=== PATIENT | female | born 1940 | race Caucasian/White ===

== ENCOUNTER 2018-08-28 07:47 | Inpatient (IN) | payer BC ==
[~2018-08-28] VITALS: Ht 154.9 cm; Wt 66.7 kg
[2018-08-28] MEDS ORDERED: METHYLPREDNISOLONE SOD SUCC 125 MG/2 ML VIAL IV STA (08:02)
[2018-08-28] MEDS ORDERED: MAGNESIUM 2 G PREMIX 50 ML IV ONE (08:15)
[2018-08-28 08:32] LABS: HEMATOCRIT. 32.3 % (36.0-48.0); HEMOGLOBIN. 9.9 g/dL (12.0-16.0); MEAN CORPUSCULAR HEMOGLOBIN 26.6 pg (28.0-32.0); MEAN CORPUSCULAR VOLUME 86.3 fL (81.0-99.0); MEAN PLATELET VOLUME 7.6 fl (7.4-10.4); PLATELET 476 x1000/uL (130-400); RED BLOOD CELL COUNT 3.74 mill/uL (4.2-5.4); RED CELL DISTRIBUTION WIDTH 20.3 % (11.6-14.6)
[2018-08-28 08:35] LABS: CHLORIDE 102 mEq/L (98-107)
[2018-08-28 09:21] LABS: PLATELET ESTIMATE INCREASED
[2018-08-28] MEDS ORDERED: HYDROCODONE/ACETAMINOPHEN 5/325MG TABLET PO PRN (16:30)
[2018-08-28] MEDS ORDERED: CLONIDINE 0.1MG TABLET PO PRN (16:30)
[2018-08-28] MEDS ORDERED: MAGNESIUM/ALUMINUM HYDROXIDE/SIMETHICONE 30ML UDC PO PRN (16:30)
[2018-08-28] MEDS ORDERED: ONDANSETRON HCL 4MG/2ML INJ IV PRN (16:30)
[2018-08-28] MEDS ORDERED: DOCUSATE SODIUM 100MG CAPSULE PO PRN (16:30)
[2018-08-28] MEDS ORDERED: ACETAMINOPHEN 650MG/20.3ML UDC GT PRN (16:30)
[2018-08-28] MEDS ORDERED: ACETAMINOPHEN 650MG SUPP PR PRN (16:30)
[2018-08-28] MEDS ORDERED: GUAIFENESIN 200MG/10ML SUGAR FREE UDC PO PRN (16:30)
[2018-08-28] MEDS ORDERED: ACETAMINOPHEN 325MG TABLET PO PRN (16:30)
[2018-08-28] MEDS ORDERED: DIPHENHYDRAMINE 50MG/ML VIAL IV PRN (16:30)
[2018-08-28] MEDS ORDERED: APIX5TAB PO (18:33)
[2018-08-28] MEDS ORDERED: OMEP20TA2 PO (18:33)
[2018-08-28] MEDS ORDERED: ALBU18HF2 IH (18:33)
[2018-08-28] MEDS ORDERED: FERR-71 PO (18:33)
[2018-08-28] MEDS ORDERED: TIOT18CA3 IH (18:33)
[2018-08-28] MEDS ORDERED: METO25TA6 PO (18:33)
[2018-08-28] MEDS ORDERED: NA PHOS,M-B/NA PHOS,DI-BA ENEMA 118ML PR PRN (18:43)
[2018-08-28 20:00] VITALS: BP 125/59
[2018-08-28 21:35] VITALS: BP 125/59
[2018-08-28] MEDS: METHYLPREDNISOLONE SOD SUCC 125 MG/2 ML VIAL IV SCH (22:26)
[2018-08-28] MEDS: SODIUM CHLORIDE 0.9% INJ 3ML FLUSH IVF SCH (22:26)
[2018-08-29] VITALS: BP 117/54
[2018-08-29] MEDS ORDERED: DEXTROSE 50% WATER 50ML SYRINGE IV PRN
[2018-08-29] MEDS: BUDESONIDE 0.5MG/2ML NEB HHN SCH ×3 (00:25→20:54)
[2018-08-29] MEDS: IPRATROPIUM BROMIDE (0.02%) 0.5MG/2.5ML NEB HHN SCH ×5 (00:25→13:58)
[2018-08-29 04:00] VITALS: BP 120/59
[2018-08-29] MEDS: METHYLPREDNISOLONE SOD SUCC 125 MG/2 ML VIAL IV SCH ×4 (06:38→21:41)
[2018-08-29] MEDS: SODIUM CHLORIDE 0.9% INJ 3ML FLUSH IVF SCH ×3 (06:42→21:42)
[2018-08-29] MEDS: BLOOD SUGAR DIAGNOSTIC STRIP TEST SCH ×4 (06:42→21:39)
[2018-08-29] MEDS: INSULIN LISPRO 100 UNITS/ML SUBCUT SCH ×4 (06:45→21:00)
[2018-08-29] MEDS: OMEPRAZOLE 20MG CAPSULE EXTENDED RELEASE PO SCH (06:45)
[2018-08-29 06:53] LABS: CHLORIDE 101 mEq/L (98-107)
[2018-08-29 07:20] LABS: LDL CHOLESTEROL 166 mg/dL (5-100)
[2018-08-29 07:21] LABS: HDL CHOLESTEROL 56 mg/dL (40-59)
[2018-08-29 07:30] VITALS: BP 139/56
[2018-08-29 07:30] LABS: HEMOGLOBIN. 9.1 g/dL (12.0-16.0); MEAN CORPUSCULAR HEMOGLOBIN 27.7 pg (28.0-32.0); MEAN CORPUSCULAR VOLUME 85.5 fL (81.0-99.0); MEAN PLATELET VOLUME 7.7 fl (7.4-10.4); PLATELET 480 x1000/uL (130-400); RED BLOOD CELL COUNT 3.28 mill/uL (4.2-5.4); RED CELL DISTRIBUTION WIDTH 20.3 % (11.6-14.6)
[2018-08-29] MEDS: APIXABAN 5 MG TABLET PO SCH ×2 (08:20→16:50)
[2018-08-29] MEDS: METOPROLOL TARTRATE 25MG TABLET PO SCH ×2 (08:21→21:43)
[2018-08-29] MEDS ORDERED: MEDICATION NOT ON FORMULARY EA (Metoprolol Tartrate 25 MG) PO SCH (09:00)
[2018-08-29] MEDS ORDERED: MEDICATION NOT ON FORMULARY EA (Omeprazole 20 MG) PO SCH (09:00)
[2018-08-29] MEDS ORDERED: POTASSIUM CHLORIDE 20MEQ TABLET SR PO PRN (09:00)
[2018-08-29] MEDS ORDERED: MEDICATION NOT ON FORMULARY EA (Apixaban (Eliquis) 5 MG) PO SCH (09:00)
[2018-08-29 12:00] VITALS: BP 127/68
[2018-08-29 16:00] VITALS: BP 115/55
[2018-08-29 20:00] VITALS: BP 108/57
[2018-08-29] MEDS: IPRATROPIUM/ALBUTEROL 0.5-3(2.5)MG/3ML NEB INH PRN (20:58)
[2018-08-30] VITALS (7 sets, daily range): BP systolic 108–151; BP diastolic 44–85
[2018-08-30] MEDS: METHYLPREDNISOLONE SOD SUCC 125 MG/2 ML VIAL IV SCH (04:41)
[2018-08-30] MEDS: OMEPRAZOLE 20MG CAPSULE EXTENDED RELEASE PO SCH (06:21)
[2018-08-30] MEDS: SODIUM CHLORIDE 0.9% INJ 3ML FLUSH IVF SCH ×3 (06:28→22:34)
[2018-08-30] MEDS: BLOOD SUGAR DIAGNOSTIC STRIP TEST SCH ×4 (06:33→20:30)
[2018-08-30] MEDS: INSULIN LISPRO 100 UNITS/ML SUBCUT SCH ×4 (07:08→20:34)
[2018-08-30] MEDS: IPRATROPIUM/ALBUTEROL 0.5-3(2.5)MG/3ML NEB INH PRN (07:21)
[2018-08-30] MEDS: METOPROLOL TARTRATE 25MG TABLET PO SCH ×2 (08:34→20:29)
[2018-08-30] MEDS: APIXABAN 5 MG TABLET PO SCH ×2 (08:35→16:22)
[2018-08-30] MEDS: BUDESONIDE 0.5MG/2ML NEB HHN SCH ×2 (08:51→21:26)
[2018-08-30 09:57] LABS: BG BASE EXCESS 2.3 mmol/L (-2.0-2.0); BG CARBOXYHEMOGLOBIN 0.3 % (0.5-1.5); BG DEOXYHEMOGLOBIN 3.9 % (0.0-5.0); BG FRACTION INSPIRED OXYGEN 21; BG HCO3 ACT 26.8 mmol/L (22.0-26.0); BG METHEMOGLOBIN 0.1 % (0.0-1.5); BG OXYGEN SATURATION 96.1 % (92.0-98.5); BG OXYHEMOGLOBIN 95.7 % (94.0-97.0); BG PCO2 41.1 mmHg (35.0-45.0); BG PH 7.432 (7.350-7.450); BG PO2 81.6 mmHg (75.0-100.0); BG SAMPLE SITE RIGHT BRACHIAL; BG TOTAL HEMOGLOBIN 10.6 g/dL (12.0-18.0); BG VENT MODE ROOM AIR
[2018-08-30] MEDS: GUAIFENESIN 600MG ER TABLET PO SCH ×2 (10:18→20:29)
[2018-08-30] MEDS: IPRATROPIUM BROMIDE (0.02%) 0.5MG/2.5ML NEB HHN SCH ×2 (14:28→21:25)
[2018-08-30 17:28] LABS: PLATELET ESTIMATE INCREASED
[2018-08-30] MEDS: METHYLPREDNISOLONE SOD SUCC 40 MG/ML VIAL IV SCH (17:57)
[2018-08-30 17:58] LABS: HEMATOCRIT. 31.5 % (36.0-48.0); HEMOGLOBIN. 9.8 g/dL (12.0-16.0); MEAN CORPUSCULAR HEMOGLOBIN 27.2 pg (28.0-32.0); MEAN CORPUSCULAR VOLUME 86.9 fL (81.0-99.0); MEAN PLATELET VOLUME 8.1 fl (7.4-10.4); PLATELET 428 x1000/uL (130-400); RED BLOOD CELL COUNT 3.62 mill/uL (4.2-5.4); RED CELL DISTRIBUTION WIDTH 20.6 % (11.6-14.6)
[2018-08-30 18:00] LABS: CHLORIDE 103 mEq/L (98-107)
[2018-08-30 19:04] LABS: PLATELET ESTIMATE INCREASED
[2018-08-31] VITALS: BP 110/52
[2018-08-31] MEDS: IPRATROPIUM BROMIDE (0.02%) 0.5MG/2.5ML NEB HHN SCH ×3 (02:33→15:15)
[2018-08-31 04:00] VITALS: BP 137/53
[2018-08-31] MEDS: BLOOD SUGAR DIAGNOSTIC STRIP TEST SCH ×2 (05:21→13:06)
[2018-08-31] MEDS: SODIUM CHLORIDE 0.9% INJ 3ML FLUSH IVF SCH (05:21)
[2018-08-31] MEDS: METHYLPREDNISOLONE SOD SUCC 40 MG/ML VIAL IV SCH (05:21)
[2018-08-31] MEDS: INSULIN LISPRO 100 UNITS/ML SUBCUT SCH ×2 (05:22→12:40)
[2018-08-31] MEDS: OMEPRAZOLE 20MG CAPSULE EXTENDED RELEASE PO SCH (06:14)
[2018-08-31 07:58] VITALS: BP 143/48
[2018-08-31] MEDS: BUDESONIDE 0.5MG/2ML NEB HHN SCH (09:05)
[2018-08-31] MEDS: GUAIFENESIN 600MG ER TABLET PO SCH (09:43)
[2018-08-31] MEDS: APIXABAN 5 MG TABLET PO SCH (09:44)
[2018-08-31] MEDS: METOPROLOL TARTRATE 25MG TABLET PO SCH (09:45)
[2018-08-31 12:02] VITALS: BP 127/57
[2018-08-31] MEDS ORDERED: P50 MT (12:36)
[2018-08-31] MEDS ORDERED: PULM50 HHN (12:36)
[2018-08-31 17:09] VITALS: BP 135/53
[2018-08-31 17:12] VITALS: BP 135/53
[2018-09-01] MEDS ORDERED: PREDNISONE 20MG TABLET PO SCH (07:40)
== END 2018-08-31 18:20 | disposition home or self-care (01) | DRG 193 ==
LOC: ER 07:56 → 8WST 11:35 → EDBEDREQ 11:38 → ENRESERV 16:08
PROVIDERS: ADMIT Family Medicine; ATTEND Family Medicine
DX: J18.9 Pneumonia, unspecified organism (principal); J96.21 Acute and chronic respiratory failure with hypoxia; J44.1 Chronic obstructive pulmonary disease with (acute) exacerbation; E44.0 Moderate protein-calorie malnutrition; J44.0 Chronic obstructive pulmonary disease with (acute) lower respiratory infection; I48.2 Chronic atrial fibrillation; D64.9 Anemia, unspecified; E78.5 Hyperlipidemia, unspecified; I50.9 Heart failure, unspecified; K44.9 Diaphragmatic hernia without obstruction or gangrene; N20.0 Calculus of kidney; N28.1 Cyst of kidney, acquired; R73.9 Hyperglycemia, unspecified; I70.0 Atherosclerosis of aorta; Z99.81 Dependence on supplemental oxygen; Z68.27 Body mass index [BMI] 27.0-27.9, adult; Z87.891 Personal history of nicotine dependence
CPT/HCPCS: 36415; 36600; 71045; 71250; 80061; 82375; 82805; 82962; 83880; 84484; 87804; 93005; 93306; 94640; 97162; 97535; 99285; J2920; J2930; J3475; J7620; J7626